=== PATIENT | female | born 1995 | race Two or more races ===

== ENCOUNTER 2019-12-25 08:04 | Emergency (ER) | payer BC, OTHER ==
[~2019-12-25] VITALS: Ht 162.6 cm; Wt 78.9 kg
[2019-12-25] MEDS ORDERED: PROMETHAZINE HCL 25 MG/ML 1ML IV ONE (08:45)
[2019-12-25] MEDS ORDERED: SODIUM CHLORIDE 0.9% 1,000 ML IVB ONE (08:45)
[2019-12-25 08:54] VITALS: BP 151/71
[2019-12-25 10:42] LABS: Urine Bacteria FEW /hpf (None Seen); Urine Blood Negative /uL (Negative); Urine Mucus FEW (None Seen); Urine Specific Gravity 1.018 (1.001-1.035); Urine WBC 1 /hpf (0 - 5)
== END 2019-12-25 11:46 | disposition home or self-care (01) ==
LOC: ER 08:04
DX: O21.8 Other vomiting complicating pregnancy (principal); O26.891 Other specified pregnancy related conditions, first trimester; E86.0 Dehydration; Z3A.12 12 weeks gestation of pregnancy
CPT/HCPCS: 36415; 81001; 84702; 96361; 96374; 99283; J2550; J7030

== ENCOUNTER 2021-06-12 18:36 | Emergency (ER) | payer BC, MEDICAID, OTHER ==
[~2021-06-12] VITALS: Ht 162.6 cm; Wt 90.7 kg
[2021-06-12 18:39] VITALS: BP 144/76
[2021-06-12 20:09] LABS: Urine Bacteria NONE SEEN /hpf (None Seen); Urine Blood Negative /uL (Negative); Urine Mucus FEW (None Seen); Urine Specific Gravity 1.029 (1.001-1.035); Urine WBC 2 /hpf (0 - 5)
[2021-06-12 21:31] LABS: Basophils # (auto) 0 10 ^3/uL (0-0.2); Basophils % (auto) 0.3 % (0.0-2.0); Eosinophils # (auto) 0 10 ^3/uL (0-0.8); Eosinophils % (auto) 0.4 % (0.0-7.0); Hematocrit 36.3 % (36.0-46.0); Hemoglobin 12.2 g/dL (12.2-16.2); Lymphocytes # (auto) 2.5 10 ^3/uL (0.4-5.4); Lymphocytes % (auto) 25.4 % (10.0-50.0); Mean Corpuscular Hemoglobin 26.2 pg (28.0-32.0); Mean Corpuscular Hgb Conc. 33.6 g/dL (32.0-36.0); Monocytes # (auto) 0.5 10 ^3/uL (0-1.3); Neutrophils # (auto) 6.8 10 ^3/uL (1.6-8.6); Neutrophils % (auto) 68.9 % (37.0-80.0); Nucleated Red Blood Cells % 0.1 %; Red Blood Cells 4.65 10^6/uL (4.0-5.20); Red Cell Distribution Width 15.8 % (11.8-14.3); White Blood Cell 9.9 10^3/uL (4.4-10.8)
[2021-06-12 21:52] LABS: Calcium 8.9 mg/dL (8.5-10.1); Potassium 3.8 mmol/L (3.5-5.1)
[2021-06-12 21:57] LABS: Albumin 3.2 g/dL (3.4-5.0); BUN/Creatinine Ratio 15.2; Bilirubin, Total 0.1 mg/dL (0.2-1.0); Total Protein 7.8 g/dL (6.4-8.2)
== END 2021-06-13 01:36 | disposition left against medical advice (07) ==
LOC: ER 18:37
DX: O20.8 Other hemorrhage in early pregnancy (principal); Z3A.01 Less than 8 weeks gestation of pregnancy
CPT/HCPCS: 36415; 76801; 80053; 81001; 84702; 85025